=== PATIENT | female | born 1945 | race Caucasian/White ===

== ENCOUNTER → 2016-12-12 | Outpatient (CLI) | payer MEDICARE | LOC: MAMO 10-26 09:40 | DX: Z12.31 Encounter for screening mammogram for malignant neoplasm of breast (principal); R92.2 Inconclusive mammogram | CPT/HCPCS: G0202 ==

== ENCOUNTER → 2016-12-26 | Outpatient (CLI) | payer MEDICARE, BC | LOC: MAMO 12-19 08:00 | DX: R92.8 Other abnormal and inconclusive findings on diagnostic imaging of breast (principal); Z90.710 Acquired absence of both cervix and uterus | CPT/HCPCS: G0206 ==

== ENCOUNTER → 2022-02-28 | Outpatient (CLI) | payer OTHER ==
[~2022-02-28] MED LIST: ADULT GLYCERIN1 EACH PR; COREG6.25 MG PO; ECOTRIN81 MG PO; ELAVIL 50 MG TA50 MG PO; LANTUS100 UNIT/1 SQ; LINZESS145 MCG PO; MIRALAX 119 GR119 GM GT; MOBIC15 MG PO; PROAIR HFA8.5 GM INH; PROTONIX40 MG PO; SINGULAIR10 MG PO; SYNTHROID88 MCG PO; ZOCOR80 MG PO
== END ==
LOC: MAMO 02-02 11:30
DX: Z12.31 Encounter for screening mammogram for malignant neoplasm of breast (principal)
CPT/HCPCS: 77063; 77067